=== PATIENT | male | born 1955 | race Caucasian/White ===

== ENCOUNTER 2021-04-12 13:42 | Emergency (ER) | payer OTHER, MEDICAID ==
[~2021-04-12] VITALS: Ht 162.6 cm; Wt 90.7 kg
[2021-04-12] MEDS ORDERED: cefTRIAXone SOD 1,000 MG VL IM ONE (17:45)
[2021-04-12] MEDS ORDERED: TETANUS-DIPTH-ACEL PERTUSSIS 0.5ML SYR Tdap IM ONE (18:00)
[2021-04-12 18:13] VITALS: BP 125/84
== END 2021-04-12 18:24 | disposition home or self-care (01) ==
LOC: ER 13:42
DX: S81.812A Laceration without foreign body, left lower leg, initial encounter (principal); S81.852A Open bite, left lower leg, initial encounter; E11.9 Type 2 diabetes mellitus without complications; W54.0XXA Bitten by dog, initial encounter; Y93.89 Activity, other specified; Y92.89 Other specified places as the place of occurrence of the external cause; Y99.8 Other external cause status
CPT/HCPCS: 73590; 96372; 99283; J0696; 90715